=== PATIENT | male | born 1970 | race African-American/Black ===

== ENCOUNTER 2017-10-21 08:06 | Emergency (ER) | payer OTHER ==
[~2017-10-21] VITALS: Ht 190.5 cm; Wt 104.0 kg
[2017-10-21 08:12] VITALS: TEMP 36.7; Ht 190.5 cm; Wt 104.0 kg
[2017-10-21] MEDS ORDERED: OXYCODONE/ACETAMINOPHEN 5-325 TAB PO STA (08:35)
[2017-10-21] MEDS ORDERED: IBUPROFEN 600 MG TAB PO STA (08:35)
--- NOTE | 2017-10-21 08:36 | EMERGENCY ROOM VISIT NOTE ---
History Report prepared by Scribe: Catherine Murillo Under the Supervision of: Dr. Hero Dela Cruz M.D. 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 He was brought to the ED via BLS. He states he was loading boxes out of a truck, when he went to step onto a lift gait, but his work partner had not put the gait up, so he fell backwards onto the ground. He landed on his back, but does not think he hit his head. He denies any LOC. He rates his back pain as a 9/10 in severity. He did not get up on his own, but waited for EMS arrival. He can still move his legs and feel normal sensation in the legs. He denies any numbness or weakness in his extremities. He has not tried to urinate since the incident. The patient denies any history of chronic medical problems. He takes no daily medications. The patient denies any neck pain or abdominal pain. 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 A total of ten systems were reviewed and were otherwise negative. Past Medical & Surgical Medical Problems: (1) No significant past medical history Social History Smoking Status: Never Smoker Alcohol Use: occasionally Drug Use: none Marital Status: Housing Status: lives with family Occupation Status: employed Current/Historical Medications Scheduled PRN Ibuprofen Tab (Motrin), 800 MG PO Q8H PRN for Pain Allergies Coded Allergies: No Known Allergies (Unverified , 10/21/17) Physical Exam Vital Signs Date Time Temp Pulse Resp B/P (MAP) Pulse Ox O2 Delivery O2 Flow Rate FiO2 10/21/17 10:17 63 18 126/76 100 Room Air 10/21/17 08:12 36.7 66 18 134/79 98 Room Air Physical Exam GENERAL: Awake, alert, well-appearing, in no distress HENT: Normocephalic, atraumatic. Oropharynx unremarkable. EYES: Normal conjunctiva. Sclera non-icteric. NECK: Supple. No nuchal rigidity. FROM. No JVD. RESPIRATORY: Clear to auscultation. CARDIAC: Regular rate, normal rhythm. Extremities warm and well perfused. Pulses equal. ABDOMEN: Soft, non-distended. No tenderness to palpation. No rebound or guarding. No masses. RECTAL: Deferred. MUSCULOSKELETAL: Chest examination reveals no tenderness. The back is symmetrical on inspection without obvious abnormality. Tenderness throughout lumbar region. No midline tenderness, no step offs. No joint edema. LOWER EXTREMITIES: Negative straight leg raise. Mild tenderness to the lateral aspect of the right hip. No pain with internal or external rotation. 5/5 strength and SILT in lower extremities. Calves are equal size bilaterally and non-tender. No edema. No discoloration. NEURO: Normal sensorium. No sensory or motor deficits noted. SKIN: No rash or jaundice noted. Medical Decision & Procedures ER Provider Diagnostic Interpretation: Radiology results as stated below per my review and radiologist interpretation: LUMBAR SPINE 2 OR 3 VIEWS, PELVIS 1 OR 2 VIEW ROUTINE HISTORY: 47 years-old Male pain fall acute lumbar spine and pelvic pain status post fall COMPARISON: None available TECHNIQUE: 3 views of the lumbar spine and 2 views of the pelvis FINDINGS: LUMBAR SPINE: Multilevel endplate degenerative changes with moderate intervertebral disc space narrowing at L5-S1. No acute fracture or subluxation. Soft tissues are unremarkable. PELVIS: Phleboliths of the pelvis are noted. No acute fracture or dislocation. No significant degenerative changes. IMPRESSION: No acute fracture or subluxation. The above report was generated using voice recognition software. It may contain grammatical, syntax or spelling errors. Electronically signed by: Bao Omer M.D. 10/21/2017 9:09 AM LUMBAR SPINE 2 OR 3 VIEWS, PELVIS 1 OR 2 VIEW ROUTINE HISTORY: 47 years-old Male pain fall acute lumbar spine and pelvic pain status post fall COMPARISON: None available TECHNIQUE: 3 views of the lumbar spine and 2 views of the pelvis FINDINGS: LUMBAR SPINE: Multilevel endplate degenerative changes with moderate intervertebral disc space narrowing at L5-S1. No acute fracture or subluxation. Soft tissues are unremarkable. PELVIS: Phleboliths of the pelvis are noted. No acute fracture or dislocation. No significant degenerative changes. IMPRESSION: No acute fracture or subluxation. The above report was generated using voice recognition software. It may contain grammatical, syntax or spelling errors. Electronically signed by: Bao Omer M.D. 10/21/2017 9:09 AM Medications Administered Medications (Trade) Dose Ordered Sig/Kristi Route Start Time Stop Time Status Last Admin Dose Admin Oxycodone/ Acetaminophen (Percocet 5-325mg Tab) 1 tab NOW STAT PO 10/21/17 08:35 10/21/17 08:37 DC 10/21/17 08:43 1 TAB Ibuprofen (Motrin Tab) 800 mg STK-MED ONCE .ROUTE 10/21/17 08:40 10/21/17 08:41 DC 10/21/17 08:43 800 MG ED Course 0827: The patient was evaluated in room B7. A complete history and physical exam was performed. 1015: I reevaluated the patient. He is feeling well and resting comfortably. I discussed his results and discharge instructions and he verbalized complete understanding and agreement. Medical Decision I reviewed the patient's past medical history, medications, and the nursing notes as described above. Differential Diagnoses: Fracture, herniated disc, disc bulge, musculoskeletal strain and contusion. 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 On arrival the patient is uncomfortable but no acute distress, afebrile stable vital signs. Mild tenderness across the lumbar region without midline tenderness or step-offs. Negative straight leg raise. Mild lateral tenderness to the right hip without pain with internal/external rotation. 5 out of 5 strength and SILT BLE. X-ray of the L-spine and pelvis unremarkable. This most likely related to muscular strain, muscle contusion. Plan for PCP and Workmen's Comp. clinic follow-up. Findings and plan for follow-up reviewed with patient. Patient agreeable and d/c 'd per discharge instructions. Medication Reconcilliation Current Medication List: was personally reviewed by me Blood Pressure Screening Patient's blood pressure: Normal blood pressure Blood pressure disposition: Did not require urgent referral Impression Primary Impression: Strain of lumbar region Scribe Attestation The scribe's documentation has been prepared under my direction and personally reviewed by me in its entirety. I confirm that the note above accurately reflects all work, treatment, procedures, and medical decision making performed by me. Departure Information Dispostion Home / Self-Care Prescriptions Ibuprofen Tab (MOTRIN) 800 Mg Tab 800 MG PO Q8H Y for Pain, #30 TAB Prov: Hero Dela Cruz M.D. 10/21/17 Referrals No Doctor, Assigned (PCP) Patient Instructions ED Exercises Lumbar Muscles, ED Sprain Strain Lumbar, My [facility] Additional Instructions Please follow up with your primary care physician and your workman's comp clinic in the next 1-3 days for re-evaluation. You likely have muscle strain from your fall. Otherwise, your exam and xrays did not show signs of an emergent condition at this time. Ibuprofen for pain as needed. Ice and heat for additional pain relief. Modify your physical activity as symptoms allow. Return to the emergency department for worsening symptoms as described in the accompanying instructions. Work Instructions Return To Work: 1 week Additional Instructions: Please excuse from work for 1 week and thereafter as symptoms allow.
[2017-10-21] MEDS ORDERED: IBUPROFEN 800 MG TAB ONE (08:40)
--- NOTE | 2017-10-21 09:11 | DIAGNOSTIC IMAGING REPORT ---
LUMBAR SPINE 2 OR 3 VIEWS, PELVIS 1 OR 2 VIEW ROUTINE HISTORY: 47 years-old Male pain fall acute lumbar spine and pelvic pain status post fall COMPARISON: None available TECHNIQUE: 3 views of the lumbar spine and 2 views of the pelvis FINDINGS: LUMBAR SPINE: Multilevel endplate degenerative changes with moderate intervertebral disc space narrowing at L5-S1. No acute fracture or subluxation. Soft tissues are unremarkable. PELVIS: Phleboliths of the pelvis are noted. No acute fracture or dislocation. No significant degenerative changes. IMPRESSION: No acute fracture or subluxation. The above report was generated using voice recognition software. It may contain grammatical, syntax or spelling errors. Electronically signed by: Bao Omer M.D. 10/21/2017 9:09 AM Dictated Date/Time: 10/21/2017 9:07 AM
[2017-10-21 10:17] VITALS: BP 126/76; PULSE 63; O2SAT 100
[2017-10-21] MEDS ORDERED: IBUP-1451 PO (10:30)
== END 2017-10-21 10:51 | disposition home or self-care (01) ==
LOC: C.EDB 08:08
DX: S39.012A Strain of muscle, fascia and tendon of lower back, initial encounter (principal); W19.XXXA Unspecified fall, initial encounter; Y92.89 Other specified places as the place of occurrence of the external cause; Y99.0 Civilian activity done for income or pay